=== PATIENT | female | born 1980 | race Caucasian/White ===

== ENCOUNTER 2017-03-09 11:05 | Emergency (ER) | payer MEDICAID ==
[~2017-03-09] VITALS: Ht 162.6 cm; Wt 81.0 kg
[~2017-03-09 11:05] MED LIST: PREN1TAB49 PO
[2017-03-09 11:07] VITALS: Ht 162.6 cm; Wt 81.0 kg
[2017-03-09] MEDS ORDERED: PANT20TA3 PO (11:38)
--- NOTE | 2017-03-09 11:47 | ERA ---
ER Documentation Chief Complaint Date/Time DATE: 03/09/17 TIME: 11:40 Chief Complaint EPIGASRIC PAIN WITH VOMITING X 2 DAYS HPI Patient is a 36-year-old female presents with epigastric pain. Patient describes the pain as burning and is worse with food. Patient has had these symptoms but was a few years ago. Patient has tried Tums with mild to moderate relief. Patient denies any shortness of breath, chest pain, nausea, vomiting, diarrhea, constipation, change in bladder habits, fever, decreased, drug or alcohol use or inability to tolerate p.o. Patient has no family history of cardiac disorders and has no cardiac risk factors ROS All systems reviewed and are negative except as per history of present illness. Medications Home Meds Active Scripts Pantoprazole* (Pantoprazole*) 20 Mg Tablet.dr, 20 MG PO BID for 14 Days, TAB Prov:SHARLENE BLOOM PA-C 03/09/17 Reported Medications Vits W-Ca,Fe,Fa(<1MG) () 1 Tab Tablet, 1 TAB PO DAILY 08/06/11 Allergies Allergies: Coded Allergies: No Known Allergy (Verified Allergy, 08/06/11) Physical Exam Vitals Vital Signs Date Time Temp Pulse Resp B/P Pulse Ox O2 Delivery O2 Flow Rate FiO2 03/09/17 11:07 98.3 89 18 140/64 99 Physical Exam Const: Obese 36-year-old female. Patient appears healthy and otherwise well in no acute distress Head: Atraumatic Eyes: Normal Conjunctiva ENT: Normal External Ears, Nose and Mouth. Neck: Full range of motion..~ No meningismus. Resp: Clear to auscultation bilaterally Cardio: Regular rate and rhythm, no murmurs Abd: Mild epigastric tenderness with deep palpation. Soft, no rebound tenderness, no guarding. Skin: No petechiae or rashes Back: No midline or flank tenderness Ext: No cyanosis, or edema Neur: Awake and alert Psych: Normal Mood and Affect Procedures/MDM Patient is a 36-year-old female presenting with epigastric abdominal pain she describes as burning that is worse with food. Has taken Tums with mild to moderate relief. Patient has no cardiac risk factors at this time the most likely diagnosis is gastritis versus duodenitis versus GERD. I do not suspect pancreatitis at this time as patient is able to tolerate p.o. and appears otherwise well and healthy. Physical exam was unremarkable except to palpation of the epigastric area resulted in mild discomfort. Patient has no right upper quadrant pain and history or to palpation and has a negative Ac' s sign. At this time I do not suspect any gallbladder involvement. We will go ahead and give the patient a short course of pantoprazole and have suggested to follow-up with primary care provider for chronic management. Departure Diagnosis: Primary Impression: Gastritis Qualified Code: K29.70 - Gastritis without bleeding, unspecified chronicity, unspecified gastritis type Additional Impression: GERD (gastroesophageal reflux disease) Qualified Code: K21.9 - Gastroesophageal reflux disease without esophagitis Condition: Stable Patient Instructions: Gerd (Adult) Additional Instructions: Make an appointment with the primary care provider for chronic management. Return to the emergency department if symptoms worsen. SHARLENE BLOOM PA-C Mar 09, 2017 11:47
== END 2017-03-09 12:23 | disposition left against medical advice (07) ==
LOC: FTE 11:05
DX: K29.70 Gastritis, unspecified, without bleeding (principal); K21.9 Gastro-esophageal reflux disease without esophagitis
CPT/HCPCS: 99283